=== PATIENT | male | born 1975 | race Caucasian/White ===

== ENCOUNTER 2022-05-16 20:52 | Emergency (ER) | payer OTHER, SELFPAY ==
--- NOTE | ~2022-05-16 | CT_ITS ---
EXAMINATION: CT brain wo con DATE: 05/16/2022 21:34 INDICATION: FELL ONTO POSTERIOR HEAD AFTER BEING HIT IN LIP . TECHNIQUE: Computed tomography (CT) of the head was performed without intravenous contrast. The mA wa s adjusted according to patient size. Iterative reconstruction technique was employed. The dose-lengt h product was 681.00 mGy-cm. COMPARISON: None FINDINGS: No acute intracranial hemorrhage or extra-axial fluid collection. No hydrocephalus, mass, or herniation. No acute ischemic infarct. Unremarkable dural venous sinus attenuation. No acute osseous abnormality. Mild posterior scalp swelling at the vertex. The aerated spaces are clear. IMPRESSION: No acute intracranial process. Reviewed, dictated and finalized at location K.
[2022-05-16 21:04] VITALS: BP 163/97; PULSE 68; RESP 16; TEMP 36.8; O2SAT 98
--- NOTE | 2022-05-16 21:05 | ED.WOUNDLAC ---
HPI - Wound/Laceration General Chief Complaint: Wound/Laceration Stated Complaint: FACIAL LACERATION Time Seen by Provider: 05/16/22 21:05 Source: patient Mode of arrival: ambulatory History of Present Illness HPI narrative: 46-year-old male was working with a crowbar when it slipped and hit him on his left maxilla half an hour ago. He presents to the ER with -- left upper lip 1.5 cm laceration which is a through and through. -- The left upper incisor is a carious but does not appear to be loose. -- Headache with questionable loss of consciousness. No neck pain Onset (ago): minute(s) ( 30 minutes ago) Location: face Place: work Patient tetanus UTD: No Context: accidental Associated symptoms: none ( headache with questionable loss of consciousness.) Related Data Home Medications Medication Instructions Recorded Confirmed No Home Medications 05/16/22 05/16/22 Allergies Allergy/AdvReac Type Severity Reaction Status Date / Time No Known Allergies Allergy Verified 05/16/22 21:03 Review of Systems Review of Systems: All systems reviewed & are unremarkable except as noted in HPI and below Constitutional: Constitutional: Reports as per HPI and Reports no additional constitutional complaints Eyes: Eyes: Reports as per HPI and Reports no additional eye complaints ENT: Reports system reviewed and no additional complaints, except as documented Comments: no dental pain. No loose teeth. Left upper lip laceration which is a through and through the lip. Cardiovascular: Cardiovascular: Reports as per HPI and Reports no additional cardiovascular complaints Respiratory: Respiratory: Reports as per HPI and Reports no additional respiratory complaints Gastrointestinal: Gastrointestinal: Reports as per HPI and Reports no additional gastrointestinal complaints Genitourinary: Genitourinary: Reports no additional male genitourinary complaints Musculoskeletal: Musculoskeletal: Reports no additional musculoskeletal complaints and Reports as per HPI Integumentary/Breasts: Skin/Breast: Reports system reviewed and no additional complaints, except as docu and Reports as per HPI Comments: Left upper lip laceration measuring 1.5 cm. Neurologic: Reports system reviewed and no additional complaints, except as documented, Reports as per HPI and Reports headache(s) Comments: Questionable transient loss of consciousness. Psychiatric: Psychiatric: Reports no additional psychiatric complaints Endocrine: Endocrine: Reports no additional endocrine complaints Hematologic/Lymphatic: Hematologic/Lymphatic: Reports no additional hematologic/lymphatic complaints Allergic/Immunologic: Allergic/Immunologic: Reports no additional allergic/immunologic complaints Course Course Emergency Course: Headache facial trauma left upper lip laceration Vital Signs Vital signs: Vital Signs Temperature 36.8 C 05/16/22 21:04 Pulse Rate 68 05/16/22 21:04 Respiratory Rate 16 05/16/22 21:04 Blood Pressure 163/97 H 05/16/22 21:04 Pulse Oximetry 98 05/16/22 21:04 Oxygen Delivery Room Air 05/16/22 21:04 Temperature 36.8 C 05/16/22 21:04 Pulse Rate 68 05/16/22 21:04 Respiratory Rate 16 05/16/22 21:04 Blood Pressure 163/97 H 05/16/22 21:04 Pulse Oximetry 98 05/16/22 21:04 Oxygen Delivery Room Air 05/16/22 21:04 Procedures Laceration Laceration 1: Date: 05/16/22 Time: 22:32 Site: lip Side (If applicable): left Size (cm): 1.5 Description: linear Depth: [id number] Local Anesthetic: lidocaine 1% Amount of anesthesia used (mL): 4 ====== Skin Level ====== Skin layer closed with: vicryl Size (cm): 4-0 Number of sutures: 5 Technique: running ====== Subcutaneous Layer ====== ====== Muscle Layer ====== ====== Tendon Layer ====== MDM - Wound/Laceration MDM Narrative [facility]
[2022-05-16] MEDS: ONDANSETRON HCL ODT 4 MG TABLET PO (21:21)
[2022-05-16] MEDS: HYDROmorphone HCL INJ (*CRX) 2 MG/ML VIAL 0.5 MG IM (21:21)
[2022-05-16] MEDS: TETANUS,DIPHTHERIA,AC PERTUSSIS ADULT 0.5 ML (ADACEL) IM (21:22)
[2022-05-16] MEDS: LIDOCAINE HCL 1% LOCAL INJ 10 ML VIAL 5 ML INFILTRATE (22:19)
--- NOTE | 2022-05-16 22:26 | PC.NURSE ---
ERP at bedside, placing sutures.
[2022-05-16 22:42] VITALS: BP 148/88; PULSE 65; RESP 16; O2SAT 99
== END 2022-05-16 22:46 | disposition home or self-care (01) ==
PROVIDERS: Emergency Provider Internal Medicine Critical Care Medicine; PCP Family Medicine
DX: S01.511A Laceration without foreign body of lip, initial encounter (principal); S09.93XA Unspecified injury of face, initial encounter; W22.8XXA Striking against or struck by other objects, initial encounter; S06.0X9A Concussion with loss of consciousness of unspecified duration, initial encounter
CPT/HCPCS: 12011; 70450; 90471; 90715; 96372; 99284; A9270; J1170

== ENCOUNTER 2022-07-26 22:09 | Emergency (ER) | payer OTHER, SELFPAY ==
--- NOTE | ~2022-07-26 | XR_ITS ---
EXAMINATION: XR chest 1V portable DATE: 07/27/2022 04:33 INDICATION: Cough. TECHNIQUE: A single frontal view of the chest was obtained. COMPARISON: CT abdomen and pelvis 02/27/2017 FINDINGS: There is no pneumonia, pleural effusion, or pneumothorax. The heart size is normal. IMPRESSION: 1. No acute cardiopulmonary disease. Reviewed, dictated and finalized at location A. [employer] HELPER
[2022-07-26 22:10] VITALS: BP 134/76; PULSE 119; RESP 22; TEMP 38.7; O2SAT 96
--- NOTE | 2022-07-26 22:28 | ED.FEVER ---
HPI - Fever General Chief Complaint: Fever Stated Complaint: high fever, body aches, cough Time Seen by Provider: 07/26/22 22:19 History of Present Illness HPI Narrative: Pt presents with fever, cough and body aches for a couple of days but worse today. Pt denies nausea or vomiting. Pt taking mucinex without relief. Related Data Allergies Allergy/AdvReac Type Severity Reaction Status Date / Time No Known Allergies Allergy Verified 07/26/22 22:21 Review of Systems Review of Systems: All systems reviewed & are unremarkable except as noted in HPI and below Exam Const: General: healthy appearing Nutritional Appearance: well nourished Orientation/consciousness: patient oriented x3 Limitations: no limitations HENMT: Mouth: Yes Normal oral and palatal mucosa present Neck: Neck: normal visual inspection and no meningeal signs Chest: Chest palpation & inspection: normal inspection of the chest Resp: Effort & Inspection: normal respiratory effort Auscultation: clear to auscultation bilaterally Cardio: Rate: regular rate Rhythm: regular rhythm GI: GI Palp: Yes Soft to palpation Auscultation: normal bowel sounds Skin: General skin exam: normal color Rashes: no rashes Neuro: General: patient oriented x3 Cranial nerves: Yes Nystagmus not present Speech: normal speech Extrem: General: normal to inspection and no clubbing, cyanosis or edema Psych: Appearance: grossly normal Mental Status: mental status grossly normal Affect: normal affect Attitude: cooperative Course Vital Signs Vital signs: Vital Signs Temperature 101.6 F H 07/26/22 22:10 Pulse Rate 119 H 07/26/22 22:10 Respiratory Rate 22 H 07/26/22 22:10 Blood Pressure 134/76 07/26/22 22:10 Pulse Oximetry 96 07/26/22 22:10 Oxygen Delivery Room Air 07/26/22 22:10 Temperature 100.7 F H 07/26/22 23:42 Pulse Rate 103 H 07/26/22 23:28 Respiratory Rate 20 07/26/22 23:28 Blood Pressure 117/68 07/26/22 23:28 Pulse Oximetry 96 07/26/22 23:28 Oxygen Delivery Room Air 07/26/22 23:28 MDM - Fever Lab Data Labs: Lab Results 07/26/22 Range/Units 22:31 Influenza A (RT-PCR) Positive (Negative) Influenza B (RT-PCR) Negative (Negative) RSV (RT-PCR) Negative (Negative) SARS-CoV-2 RNA (RT-PCR) Negative (Negative) Discharge Plan Discharge Clinical Impression: Influenza Patient Disposition: Home, Self-Care Condition: Stable Instructions: Antibiotic Form, Influenza (ED) Prescriptions: [place] CG 7.5-225 mg/5 mL liquid 7.5 ml PO Q4-6H PRN (Reason: cough) Qty: 60 0RF Follow-up/Referrals: August Ng M.D. [Primary Care Provider] -
[2022-07-26] MEDS: KETOROLAC 30 MG/ML VIAL (*BKC) IM (22:37)
[2022-07-26 23:09] LABS: Influenza A QL RT-PCR Positive (Negative); Influenza B QL RT-PCR Negative (Negative); SARS-CoV-2 RNA PCR Negative (Negative)
--- NOTE | 2022-07-26 23:10 | PC.NURSE ---
Resumed care of patient. no questions. awaiting lab results
[2022-07-26 23:19] LABS: RSV RNA, RT-PCR Negative (Negative)
[2022-07-26 23:28] VITALS: BP 117/68; PULSE 103; RESP 20; TEMP 37.9; O2SAT 96
[2022-07-26] MEDS: guaiFENesin/DEXTROMETHORPHAN 5 ML UDC PO (23:39)
[2022-07-26 23:42] VITALS: TEMP 38.2
--- NOTE | 2022-07-27 09:20 | PC.NURSE ---
ernie calls reporting they do not have the medication for the rx that was sent last pm. after multiple calls to multiple pharmacies, the [facility] in [place] [address], had it in stock. attempted to contact pt to notify of change, message left on his phone. dr torrez would not change the dosage to what the other pharmacies had in stock, telephone order for the rx dr garza wrote was called in at this time.
== END 2022-07-26 23:43 | disposition home or self-care (01) ==
PROVIDERS: Emergency Provider Emergency Medicine; PCP Family Medicine
DX: J11.1 Influenza due to unidentified influenza virus with other respiratory manifestations (principal); Z20.822 Contact with and (suspected) exposure to COVID-19
CPT/HCPCS: 71045; 87637; 96372; 99283; A9270; J1885